=== PATIENT | female | born 1955 | race Caucasian/White ===

== ENCOUNTER 2020-08-10 12:05 | Day surgery (SDCO) | payer OTHER ==
[~2020-08-10 12:05] MED LIST: ATARAX25 MG PO; BACLOFEN 20MG T20 MG PO; BUSPIRONE HCL15 MG PO; CLONAZEPAM0.5 MG PO; DUONEB 2.5-0.5M1 AMP INH; GLUCOPHAGE XR750 MG PO; LATUDA80 MG PO; LIPITOR 10MG TA10 MG PO; LOPRESSOR25 MG PO; MELATONIN5 M2 PO; NEURONTIN300 MG PO; OMEPRAZOLE20 M2 PO; PROZAC20 MG PO; SYNTHROID88 MCG PO; TRAZODONE 100M100 MG PO; VALSARTAN160 MG PO; VENTOLIN HFA IN18 GM INH
[2020-08-10 13:23] LABS: BASOPHIL 0.1 % (0-2); EOSINOPHIL 0 % (0-5); HCT 39.7 % (37.0-47.0); HGB 12.6 g/dl (12.5-16.0); LYMPHOCYTE 11.9 % (15-48); MCH 27.9 pg (25.0-31.0); MCHC 31.7 g/dL (32.0-36.0); MONOCYTE 9.1 % (0-12); MPV 10.5 fL (6.0-9.5); NEUTROPHIL 78.4 % (41-80); NRBC 0; PLT 242 K/uL (150-400); RBC 4.51 M/uL (4.20-5.40); RDW 13.7 % (11.5-14.0); WBC 13.1 K/uL (4.0-10.5)
[2020-08-10 13:27] LABS: BILIRUBIN 1+ mg/dL (NEGATIVE); BLOOD NEGATIVE Ery/uL (NEGATIVE); CLARITY HAZY (CLEAR); GLUCOSE (U) NORMAL (NORMAL); LEUKOCYTES NEGATIVE Leu/uL (NEGATIVE); NITRITE NEGATIVE (NEGATIVE); PROTEIN 1+ mg/dL (NEGATIVE); SPECIFIC GRAVITY >=1.030 (1.001-1.030)
[2020-08-10 13:27] LABS: INR 1.09 (0.9-1.2); PROTHROMBIN TIME 13.4 SECONDS (11.4-13.6); PTT 24.8 SECONDS (22.2-34.7)
[2020-08-10 13:29] LABS: ECSTASY (MDMA) NEGATIVE (NEGATIVE); MARIJUANA (THC) NEGATIVE (NEGATIVE); METHADONE NEGATIVE (NEGATIVE); OPIATES NEGATIVE (NEGATIVE)
[2020-08-10 13:30] LABS: AMPHETAMINES NEGATIVE (NEGATIVE); BARBITURATES NEGATIVE (NEGATIVE); OXYCODONE NEGATIVE (NEGATIVE)
[2020-08-10 13:32] LABS: COLOR AMBER (YELLOW)
[2020-08-10 13:39] LABS: MUCOUS MODERATE
[2020-08-10 13:40] LABS: BACTERIA TRACE
[2020-08-10 14:11] LABS: PRO-BNP 203 pg/mL (<125)
[2020-08-10 14:12] LABS: BILIRUBIN - TOTAL 0.4 mg/dL (0.2-1.0); BUN/CREAT RATIO (CALC) 11.3 RATIO; CREATININE 1.06 mg/dL (0.51-0.95); GLOBULIN (CALCULATION) 4.1 g/dL; MAGNESIUM 1.9 mg/dL (1.8-2.4); POTASSIUM 3.9 mmol/L (3.5-5.1); TOTAL PROTEIN 7.1 g/dL (6.4-8.2)
--- NOTE | 2020-08-10 19:30 | NUR ---
VOMITTED X 2. IV ZOFRAN GIVEN
[2020-08-10] MEDS ORDERED: PROZAC20 MG PO (20:49)
--- NOTE | 2020-08-11 16:41 | NUR ---
08/11/20 Ms. Rider lives at home with her spouse. A referral has been [facility] to [facility]; affliation explained.
[2020-08-12 06:29] LABS: BASOPHIL 0.4 % (0-2); EOSINOPHIL 1.5 % (0-5); HCT 34.5 % (37.0-47.0); LYMPHOCYTE 27.5 % (15-48); MCH 28.4 pg (25.0-31.0); MCHC 31.9 g/dL (32.0-36.0); MCV 89.1 fL (78.0-100.0); MONOCYTE 12.3 % (0-12); MPV 10.7 fL (6.0-9.5); NRBC 0; PLT 216 K/uL (150-400); RBC 3.87 M/uL (4.20-5.40); RDW 13.6 % (11.5-14.0); WBC 10.2 K/uL (4.0-10.5)
[2020-08-12 06:44] LABS: BUN/CREAT RATIO (CALC) 11.1 RATIO; CREATININE 0.99 mg/dL (0.51-0.95); POTASSIUM 3.6 mmol/L (3.5-5.1)
--- NOTE | 2020-08-12 10:02 | NUR ---
08/12 [facility] was notified of patient's DC today. Report given to MS PAT Daniels.
--- NOTE | 2020-08-12 10:05 | NUR ---
PATIENT'S DAUGHTER CAMMIE CALLED REGARDING PATIENT BEING DISCHARGED TODAY. DAUGHTER EXPRESSED CONCERN THAT SHE IS UNABLE TO CARE FOR PATIENT DUE TO HER INABILITY TO WALK AND SUGGESTED THAT PATIENT GO TO REHAB UPON DISCHARGE. DAUGHTER GIVEN CERTIFICATION ENGINEER NUMBER TO DISCUSS CONCERN, THIS RN SPOKE WITH DR CHRISTIE AND REQUESTED A PT/OT EVAL TO EVALUATE PATIENT'S ABILITY TO AMBULATE. LEFT VM WITH ACCOUNT REVIEW SPECIALIST REQUESTING CALL TO DISCUSS CONCERNS EXPRESSED BY DAUGHTER
== END 2020-08-12 15:42 | disposition home health service (06) ==
LOC: FER 12:05 → FMS 16:41 → FICU 18:46 → FMS 08-11 09:48
PROVIDERS: Emergency Medicine; ADMIT Internal Medicine
DX: R41.82 Altered mental status, unspecified (principal); M25.571 Pain in right ankle and joints of right foot; I25.10 Atherosclerotic heart disease of native coronary artery without angina pectoris; M19.90 Unspecified osteoarthritis, unspecified site; F17.200 Nicotine dependence, unspecified, uncomplicated; I11.9 Hypertensive heart disease without heart failure; E11.9 Type 2 diabetes mellitus without complications; R82.5 Elevated urine levels of drugs, medicaments and biological substances; Z20.822 Contact with and (suspected) exposure to COVID-19; Z79.84 Long term (current) use of oral hypoglycemic drugs; Z79.899 Other long term (current) drug therapy; Z86.59 Personal history of other mental and behavioral disorders; Z86.73 Personal history of transient ischemic attack (TIA), and cerebral infarction without residual deficits
CPT/HCPCS: 36415; 36600; 70450; 71045; 73610; 74018; 80048; 80053; 80305; 81001; 82550; 82728; 82803; 82962; 83605; 83615; 83735; 83880; 84145; 84443; 84484; 85025; 85610; 85730; 87088; 93005; 97162; 97165; 97530-GP; 97535; G0378; J0780; J1885; J2405; J7030; U0002

== ENCOUNTER 2021-06-20 15:55 | Emergency (ER) | payer OTHER ==
[2021-06-20 22:02] LABS: BASOPHIL 0.3 % (0-2); EOSINOPHIL 0.4 % (0-5); HCT 38.5 % (37.0-47.0); LYMPHOCYTE 21.1 % (15-48); MCHC 33.8 g/dL (32.0-36.0); MCV 85.7 fL (78.0-100.0); MONOCYTE 12.4 % (0-12); MPV 10.1 fL (6.0-9.5); NEUTROPHIL 65.3 % (41-80); NRBC 0; PLT 247 K/uL (150-400); RBC 4.49 M/uL (4.20-5.40); RDW 15.5 % (11.5-14.0); WBC 14.9 K/uL (4.0-10.5)
[2021-06-20 22:23] LABS: CORONAVIRUS 2019 SARS-COV-2 NEGATIVE (NEGATIVE); INFLUENZA A NAA NEGATIVE (NEGATIVE)
[2021-06-20 22:24] LABS: ALBUMIN 3.3 g/dL (3.4-5.0); BILIRUBIN - TOTAL 0.8 mg/dL (0.2-1.0); BUN/CREAT RATIO (CALC) 12.6 RATIO; CREATININE 0.95 mg/dL (0.51-0.95); GLOBULIN (CALCULATION) 3.5 g/dL; POTASSIUM 3.5 mmol/L (3.5-5.1); TOTAL PROTEIN 6.8 g/dL (6.4-8.2)
[2021-06-21 01:27] LABS: BILIRUBIN NEGATIVE (NEGATIVE); BLOOD NEGATIVE Ery/uL (NEGATIVE); CLARITY CLEAR (CLEAR); COLOR YELLOW (YELLOW); GLUCOSE (U) NORMAL (NORMAL); LEUKOCYTES NEGATIVE Leu/uL (NEGATIVE); NITRITE NEGATIVE (NEGATIVE); PROTEIN NEGATIVE (NEGATIVE); UROBILINOGEN 0.2 mg/dL (0.2-1.0); pH 8.5 (5.0-9.0)
[2021-06-21] MEDS ORDERED: PERCOCET 5-3251 EACH PO (02:30)
[2021-06-21] MEDS ORDERED: MAGICMW SSW (02:30)
== END 2021-06-21 02:55 | disposition home or self-care (01) ==
LOC: FER 15:55
PROVIDERS: Internal Medicine
DX: U07.1 COVID-19 (principal); E11.9 Type 2 diabetes mellitus without complications; I10 Essential (primary) hypertension
CPT/HCPCS: 36415; 80053; 81003; 83690; 84145; 84484; 85025; 93005; J1885; U0002

== ENCOUNTER 2021-08-16 18:59 | Emergency (ER) | payer OTHER ==
[~2021-08-16 18:59] MED LIST changes: +MAGICMW SSW; +PERCOCET 5-3251 EACH PO
[2021-08-16 22:02] LABS: BASOPHIL 0.3 % (0-2); EOSINOPHIL 0.8 % (0-5); HCT 38.3 % (37.0-47.0); HGB 12.5 g/dl (12.5-16.0); LYMPHOCYTE 26.3 % (15-48); MCH 29.6 pg (25.0-31.0); MCHC 32.6 g/dL (32.0-36.0); MCV 90.8 fL (78.0-100.0); MONOCYTE 11.6 % (0-12); MPV 9.4 fL (6.0-9.5); NEUTROPHIL 58.8 % (41-80); NRBC 0; PLT 335 K/uL (150-400); RBC 4.22 M/uL (4.20-5.40); RDW 15.4 % (11.5-14.0); WBC 14.5 K/uL (4.0-10.5)
[2021-08-16 22:18] LABS: BUN/CREAT RATIO (CALC) 14.2 RATIO; CREATININE 1.69 mg/dL (0.51-0.95); POTASSIUM 4.4 mmol/L (3.5-5.1)
[2021-08-16 23:05] LABS: BILIRUBIN - TOTAL 0.3 mg/dL (0.2-1.0)
[2021-08-16 23:41] LABS: BILIRUBIN NEGATIVE (NEGATIVE); BLOOD NEGATIVE Ery/uL (NEGATIVE); CLARITY CLEAR (CLEAR); COLOR YELLOW (YELLOW); GLUCOSE (U) NORMAL (NORMAL); LEUKOCYTES TRACE Leu/uL (NEGATIVE); NITRITE NEGATIVE (NEGATIVE); PROTEIN TRACE (LOW) mg/dL (NEGATIVE); SPECIFIC GRAVITY 1.025 (1.001-1.030); UROBILINOGEN 0.2 mg/dL (0.2-1.0)
[2021-08-16 23:48] LABS: BACTERIA 3+; SQUAMOUS EPITHELIAL CELLS RARE
[2021-08-16 23:49] LABS: AMORPHOUS URATES CRYSTALS TRACE; MUCOUS TRACE
[2021-08-17] MEDS ORDERED: MACROBID100 MG PO (04:20)
[2021-08-17] MEDS ORDERED: ONDANSETRON ODT4 MG PO (04:20)
== END 2021-08-17 08:39 | disposition home or self-care (01) ==
LOC: FER 18:59
PROVIDERS: Emergency Medicine; Nurse Practitioner Family
DX: N39.0 Urinary tract infection, site not specified (principal); R53.83 Other fatigue; E11.9 Type 2 diabetes mellitus without complications; Z86.16 Personal history of COVID-19; Z79.84 Long term (current) use of oral hypoglycemic drugs
CPT/HCPCS: 36415; 71250; 80048; 81001; 82247; 84075; 84450; 84460; 84484; 85025; 87088; J1885; J2405; J7030

== ENCOUNTER 2021-12-23 01:56 | Emergency (ER) | payer OTHER ==
[~2021-12-23 01:56] MED LIST changes: +MACROBID100 MG PO; +ONDANSETRON ODT4 MG PO
== END 2021-12-23 04:05 | disposition home or self-care (01) ==
LOC: FER 01:56
DX: R04.0 Epistaxis (principal); M95.0 Acquired deformity of nose; F17.210 Nicotine dependence, cigarettes, uncomplicated
CPT/HCPCS: C9046